=== PATIENT | female | born 1980 | race Caucasian/White ===

== ENCOUNTER → 2019-02-14 | Outpatient (CLI) | payer BC ==
[2006-09-25 07:00] VITALS: PULSE 70; TEMP 98
[~2019-02-14] MED LIST: PRENATAL1 TA1 PO
== END ==
LOC: COL.RAD 12:31
DX: K58.9 Irritable bowel syndrome, unspecified (principal)

== ENCOUNTER → 2021-02-14 | Outpatient (CLI) | payer BC ==
[2006-09-25 07:00] VITALS: PULSE 70; TEMP 98
== END ==
LOC: MC.RAD 09:45
DX: Z12.31 Encounter for screening mammogram for malignant neoplasm of breast (principal); N64.89 Other specified disorders of breast

== ENCOUNTER → 2021-02-16 | Outpatient (CLI) | payer BC ==
[2006-09-25 07:00] VITALS: PULSE 70; TEMP 98
== END ==
LOC: MC.RAD 12:57
DX: N64.89 Other specified disorders of breast (principal)

== ENCOUNTER → 2022-02-15 | Outpatient (CLI) | payer BC ==
[2006-09-25 07:00] VITALS: PULSE 70; TEMP 98
== END ==
LOC: MC.RAD 10:57
DX: Z12.31 Encounter for screening mammogram for malignant neoplasm of breast (principal)

== ENCOUNTER → 2024-04-30 | Outpatient (CLI) | payer BC ==
[2006-09-25 07:00] VITALS: PULSE 70; TEMP 98
== END ==
LOC: MC.RAD 12:59
DX: Z12.31 Encounter for screening mammogram for malignant neoplasm of breast (principal)